=== PATIENT | female | born 1965 | race Caucasian/White ===

== ENCOUNTER 2020-10-18 18:08 | Emergency (ER) | payer OTHER ==
[~2020-10-18] VITALS: Ht 144.8 cm; Wt 70.3 kg
--- NOTE | 2020-10-18 18:20 | NUR ---
ER BED 1, C/O LFA PAIN AND SWELLING
--- NOTE | 2020-10-18 18:30 | NUR ---
DR INFANTE AT BEDSIDE FOR EVAL
[2020-10-18] MEDS: ACETAMINOPHEN 325 MG TABLET PO ONE (18:40)
[2020-10-18] MEDS ORDERED: ACETAMINOPHEN ES 500 MG TABLET ONE (18:44)
--- NOTE | 2020-10-18 18:53 | NUR ---
Monisha connelly in [facility] - 10/18/20 at 1900 by [facility] ER BED 1, C/O LFA PAIN AND SWELLING
--- NOTE | 2020-10-18 19:06 | NUR ---
ENDORSED TO NOC RN FOR PAPI
[2020-10-18] MEDS ORDERED: IBUP-1955 PO (20:28)
--- NOTE | 2020-10-18 20:38 | NUR ---
[facility] CALLED FOR TRANSPORT. ETA 60-75 MINUTES.
--- NOTE | 2020-10-18 21:45 | NUR ---
CALLED [facility] FOR PT UPDATE.
--- NOTE | 2020-10-18 22:20 | NUR ---
[facility] PICKED UP PATIENT FOR TRANSFER BACK TO FACILITY.
[2020-10-18 22:37] VITALS: BP 112/61
== END 2020-10-18 22:37 | disposition home or self-care (01) ==
LOC: ER 18:17
DX: M65.222 Calcific tendinitis, left upper arm (principal); Z88.0 Allergy status to penicillin
CPT/HCPCS: 73060-TC

== ENCOUNTER 2020-10-31 17:23 | Emergency (ER) | payer OTHER ==
[~2020-10-31] VITALS: Ht 144.8 cm; Wt 71.2 kg
[~2020-10-31 17:23] MED LIST: IBUP-1955 PO
--- NOTE | 2020-10-31 17:42 | NUR ---
THE PATIENT BIBRA FOR PERSISTENT LEFT UPPER EXTREMITY EDEMA,SWELLING, SEEN HERE ON 10/18/2020 FOR THE SAME CONDITION. RATES LEFT UPPER EXTREMITY PAIN 5/10. IN ROOM AIR AND DENIES SOB. RESPIRATION REGULAR AND UNLABORED. WILL CONTINUE TO MONITOR THE PATIENT.
--- NOTE | 2020-10-31 19:03 | NUR ---
REPORT GIVEN TO NURSE BYRNE FROM [facility]
[2020-10-31 19:04] VITALS: BP 134/88
--- NOTE | 2020-10-31 19:04 | NUR ---
THE PATIENT IS DISCHARGE FROM ER IN STABLE CONDITION, GOING TO ASSIGN FACILITY .
== END 2020-10-31 19:05 ==
LOC: ER 17:30
DX: R22.32 Localized swelling, mass and lump, left upper limb (principal); Z98.890 Other specified postprocedural states; Z88.0 Allergy status to penicillin; Z79.899 Other long term (current) drug therapy
CPT/HCPCS: 93971-TC